=== PATIENT | female | born 1950 | race Caucasian/White ===

== ENCOUNTER → 2016-12-29 | Outpatient (CLI) | payer MEDICARE, BC ==
--- NOTE | 2016-12-29 16:55 | US ---
ULTRASOUND EXAMINATION OF the right lower extremity WITH DOPPLER HISTORY: Soft tissues disorder FINDINGS: Examination of the right leg was performed from the groin to the calf region. All visualized segmen ts including common femoral, proximal greater saphenous, superficial femoral, popliteal and calf vei ns appear patent with good compressibility and augmentation. There is no evidence of deep vein thro mbosis. IMPRESSION: No evidence of a DVT.
== END ==
LOC: MW.CHIM 14:14
PROVIDERS: ATTEND Internal Medicine
DX: M79.89 Other specified soft tissue disorders (principal)
CPT/HCPCS: 36415; 85025; 85652; 86140; 93971-26-RT; 93971-RT; 99204